=== PATIENT | male | born 1955 | race Caucasian/White ===

== ENCOUNTER → 2016-11-16 | Outpatient (CLI) | payer MEDICARE | END | disposition home or self-care (01) | LOC: PCVCCLINIC 13:41 | PROVIDERS: ATTEND Internal Medicine Cardiovascular Disease | DX: E78.00 Pure hypercholesterolemia, unspecified (principal); I10 Essential (primary) hypertension; I63.50 Cerebral infarction due to unspecified occlusion or stenosis of unspecified cerebral artery; G47.33 Obstructive sleep apnea (adult) (pediatric); K21.9 Gastro-esophageal reflux disease without esophagitis; I25.10 Atherosclerotic heart disease of native coronary artery without angina pectoris | CPT/HCPCS: 80061; 93005; G0463 ==

== ENCOUNTER → 2018-05-26 | Outpatient (CLI) | payer MEDICARE | END | disposition home or self-care (01) | LOC: PCVCCLINIC 10:42 | PROVIDERS: ATTEND Internal Medicine Cardiovascular Disease | DX: I25.10 Atherosclerotic heart disease of native coronary artery without angina pectoris (principal); I10 Essential (primary) hypertension; E78.4 Other hyperlipidemia; I63.9 Cerebral infarction, unspecified; I77.9 Disorder of arteries and arterioles, unspecified; M25.551 Pain in right hip; Z87.891 Personal history of nicotine dependence; Z79.82 Long term (current) use of aspirin | CPT/HCPCS: 80061; 93005; G0463 ==

== ENCOUNTER → 2019-02-23 | Outpatient (CLI) | payer MEDICARE | END | disposition home or self-care (01) | LOC: PCVCCLINIC 11:30 | PROVIDERS: ATTEND Internal Medicine Cardiovascular Disease | DX: I25.10 Atherosclerotic heart disease of native coronary artery without angina pectoris (principal); E78.00 Pure hypercholesterolemia, unspecified; I65.23 Occlusion and stenosis of bilateral carotid arteries; I63.9 Cerebral infarction, unspecified; I10 Essential (primary) hypertension; E78.5 Hyperlipidemia, unspecified; K21.9 Gastro-esophageal reflux disease without esophagitis; Z87.891 Personal history of nicotine dependence; Z79.899 Other long term (current) drug therapy | CPT/HCPCS: 36415; 80061; 93005; G0463 ==

== ENCOUNTER → 2019-08-09 | Outpatient (CLI) | payer MEDICARE, BC ==
--- NOTE | 2019-08-09 12:22 | PCVCIMAG ---
APPROVED REPORT Study performed: 08/09/2019 09:47:25 Exam: Stress Echocardiogram Indication: CAD, htn Patient Location: Echo lab Stress Nurse: Iza Mancia RN Room #: 2 Status: routine Ht: 5 ft 9 in HR: 66 bpm BP: 138/76 mmHg Rhythm: NSR Medical History Medical History: CAD Cardiac Risk Factors: HTN Previous Cardiac Procedures: PCI Pretest Chest Pain Characteristics: No chest pain Exercise History: Indeterminate Procedure The patient underwent an Exercise Stress Test using the Reid Protocol. Blood pressure, heart rate, and EKG were monitored. An Echocardiogram was performed by substance abuse technician in four stages in quad fashion. At peak stress, four selected images were obtained and placed side by side with resting images for comparison. Stress Test Details Stress Test: Exercise stress testing was performed using a Erid protocol. HR Resting HR: 66 bpmMax Heart Rate (APMHR): 155 bpm Max HR Achieved: 125 bpmTarget HR (85% APMHR): 131 bpm % of APMHR: 80 Recovery HR: 80 bpm HR response to stress: Normal HR response to stress BP Resting BP: 138/76 mmHg Max BP: 210/80 mmHg Recovery BP: 180/78 mmHg BP response to stress: Abnormal hypertensive response to stress. ECG Resting ECG: Sinus Rhythm, NSSTT changes Stress ECG: Sinus Rhythm, NSSTT changes ST Change: Downsloping ST depression Maximum ST Deviation: -1.65 mm Arrhythmia: pvcs Recovery ECG: Sinus Rhythm, nonspecific ST-T abnormalities Recovery ST Change: Non-ischemic Recovery ST Deviation: -1.25 mm Recovery Arrhythmia: APC Clinical Reason for Termination: Maximal effort Stress Symptoms: fatigue Exercise duration: 8 min 10 sec Exercise capacity: 10.1 METs Overall Exercise Capacity for Age: Normal Scale: Sedentary Angina Score: None No complications. Stress ECG Conclusion Block Treadmill Score is 16.3 which is Low risk. Pre-Stress Echo The resting Echocardiogram showed normal left ventricular contractility with an estimated Ejection Fraction of about 55-60%. The resting Echocardiogram demonstrated wall motion abnormality in the distal septum and inferior murphy consistent with known occluded distal PDA . Post-Stress Echo The stress Echocardiogram showed normal left ventricular contractility with an estimated Ejection Fraction of about 60-65%. The stress Echocardiogram demonstrated wall motion abnormality in the distal septum and inferior murphy consistent with prior tesring . Compared to rest, there were no stress-induced wall motion abnormalities. Conclusion Clinical Response: Non-ischemic Exercise Capacity: Average Stress ECG Response: Non-ischemic Stress Echo Images: Non-ischemic No clinical, EKG or echocardiographic evidence for ischemia. No echocardiographic evidence for exercise induced ischemia. Normal color doppler. No regurgitation or stenosis present on pulmonic, mitral, tricuspid and aortic valves. Compared to the prior study dated 07-29-17, no change is seen. <Conclusion> No clinical, EKG or echocardiographic evidence for ischemia. No echocardiographic evidence for exercise induced ischemia. Normal color doppler. No regurgitation or stenosis present on pulmonic, mitral, tricuspid and aortic valves.
== END | disposition home or self-care (01) ==
LOC: PCVCIMAG 09:40
PROVIDERS: ATTEND Internal Medicine Cardiovascular Disease
DX: I25.10 Atherosclerotic heart disease of native coronary artery without angina pectoris (principal); I10 Essential (primary) hypertension
CPT/HCPCS: 93325; 93351